=== PATIENT | female | born 1985 | race Caucasian/White ===

== ENCOUNTER 2019-03-09 09:04 | Inpatient (IN) | payer OTHER ==
[~2019-03-09] VITALS: Ht 175.3 cm; Wt 79.5 kg
[~2019-03-09 09:04] MED LIST: RINGERS SOLUTION,LACTATED 1,000 ML IV ONE
[2019-03-09] MEDS ORDERED: GELATIN SPONGE,ABSORBABLE 100 MM TP ONE ×2 (09:14→10:53)
[2019-03-09] MEDS ORDERED: THROMBIN, BOVINE 20000 UNITS/VIAL POWDER TP ONE ×2 (09:15→10:53)
[2019-03-09] MEDS ORDERED: CeFAZolin 2 GM/DEXTROSE 50 ML IV ONE (09:30)
[2019-03-09 09:52] LABS: BASOPHILS % (AUTO) 0.7 % (0.0-2.0); EOSINOPHILS % (AUTO) 2.4 % (1.0-6.0); HEMATOCRIT 42.7 % (36-46); HEMOGLOBIN 14.2 g/dL (12.0-16.0); LYMPHOCYTES # (AUTO) 1.8 K/uL (1.0-4.8); LYMPHOCYTES % (AUTO) 24.6 % (22.0-44.0); MEAN CORPUSCULAR HEMOGLOBIN 31.1 pg (26.0-34.0); MEAN CORPUSCULAR HGB CONC 33.3 G/dL (31.0-37.0); MEAN CORPUSCULAR VOLUME 93 fL (80-100); MONOCYTES # (AUTO) 0.4 K/uL (0.1-1.0); MONOCYTES % (AUTO) 5.7 % (2.0-9.0); NEUTROPHILS # (AUTO) 4.9 K/uL (1.8-7.7); NEUTROPHILS % (AUTO) 66.6 % (40.0-70.0); PLATELET COUNT (AUTO) 209 K/uL (150-450); RED BLOOD CELL COUNT(AUTO) 4.58 MIL/uL (4.00-5.20); RED CELL DISTRIBUTION WIDTH 12.3 % (11.5-14.5)
[2019-03-09 10:02] LABS: ANION GAP 7 mmol/L (8-16); CALCIUM, TOTAL 8.8 mg/dL (8.8-10.5); CARBON DIOXIDE 28 mmol/L (22-29); CHLORIDE 102 mmol/L (98-107); CREATININE 0.66 mg/dL (0.60-1.30); GLOMERULAR FILTR. RATE CALC > 60 mL/min (>60); GLUCOSE,RANDOM 87 mg/dL (70-110); POTASSIUM 4.2 mmol/L (3.5-5.1); SODIUM SERUM 137 mmol/L (136-145); UREA NITROGEN, BLOOD 11 mg/dL (7-18)
[2019-03-09 10:04] LABS: PROTHROMBIN TIME 9.7 SEC (9.4-11.6)
[2019-03-09 10:15] LABS: ALANINE AMINOTRANSFERASE 26 U/L (12-78); ALBUMIN 4.1 g/dL (3.4-5.0); ALKALINE PHOSPHATASE 61 U/L (46-116); ASPARTATE AMINOTRANSFERASE 17 U/L (15-37); BILIRUBIN,TOTAL 0.2 mg/dL (0.1-1.0); HCG,QUANTITATIVE < 1 mIU/mL (0-6); TOTAL PROTEIN, SERUM 7.8 g/dL (6.4-8.2)
[2019-03-09] MEDS ORDERED: ZOLPIDEM TARTRATE 10 MG TABLET PO PRN (10:30)
[2019-03-09] MEDS ORDERED: MAG HYDROX/AL HYDROX/SIMETH 30 ML SUSP UDCUP PO PRN (10:30)
[2019-03-09] MEDS ORDERED: DEXAMETHASONE SOD PHOS 4 MG/ML VIAL IVP PRN (10:30)
[2019-03-09] MEDS ORDERED: DiphenhydrAMINE HCL 50 MG/ML VIAL IVP PRN (10:30)
[2019-03-09] MEDS ORDERED: HYDROCODONE/ACETAMINOPHEN 5-325 MG TABLET PO PRN (12:15)
[2019-03-09] MEDS ORDERED: MEPERIDINE-PF 25 MG/ML VIAL IVP PRN (12:15)
[2019-03-09] MEDS ORDERED: HYDROmorphone 2 MG/ML SYRINGE IVP SCH (12:15)
[2019-03-09] MEDS ORDERED: HYDROCODONE/ACETAMINOPHEN 10-325 MG TABLET PO PRN (12:15)
[2019-03-09] MEDS ORDERED: FentaNYL CITRATE-PF 100 MCG/2 ML VIAL IVP PRN (12:15)
[2019-03-09] MEDS ORDERED: HYDROmorphone 2 MG/ML SYRINGE ONE ×2 (12:31→17:53)
[2019-03-09] MEDS: HYDROmorphone 2 MG/ML SYRINGE IVP PRN ×5 (12:34→21:42)
[2019-03-09] MEDS ORDERED: MEPERIDINE-PF 25 MG/ML VIAL ONE (12:52)
[2019-03-09] MEDS ORDERED: FentaNYL CITRATE-PF 100 MCG/2 ML VIAL ONE (13:17)
[2019-03-09] MEDS ORDERED: CYCLOBENZAPRINE HCL 10 MG TABLET PO SCH (14:00)
[2019-03-09] MEDS ORDERED: ClonazePAM 0.5 MG TABLET PO SCH (14:45)
[2019-03-09] MEDS ORDERED: HYDROmorphone 2 MG/ML SYRINGE IVP PRN (15:15)
[2019-03-09 16:20] VITALS: BP 120/74
[2019-03-09] MEDS ORDERED: DIAZEPAM 5 MG TABLET ONE (17:50)
[2019-03-09] MEDS ORDERED: DIAZEPAM 5 MG TABLET PO SCH ×2 (18:00→21:00)
[2019-03-09] MEDS ORDERED: OxyCODONE HCL 10 MG IR TABLET PO PRN (18:00)
[2019-03-09] MEDS ORDERED: SODIUM CHLORIDE 0.9% 500 ML IV ONE (19:55)
[2019-03-09] MEDS: ACETAMINOPHEN 1000 MG/ISO-OSM 100 ML IV SCH (20:02)
[2019-03-09] MEDS: DOCUSATE SODIUM 100 MG CAPSULE PO SCH (20:02)
[2019-03-09] MEDS ORDERED: CYCLOBENZAPRINE HCL 10 MG TABLET PO ONE (20:30)
[2019-03-09 20:34] VITALS: BP 127/72
[2019-03-09] MEDS: ZOLPIDEM TARTRATE 5 MG TABLET PO SCH (21:00)
[2019-03-09] MEDS: OXYGEN THERAPY IH SCH (21:03)
[2019-03-09] MEDS ORDERED: TEMAZEPAM 7.5 MG CAPSULE PO ONE (21:45)
[2019-03-10 00:27] VITALS: BP 122/66
[2019-03-10] MEDS: HYDROmorphone 2 MG/ML SYRINGE IVP PRN ×4 (00:29→22:05)
[2019-03-10] MEDS: ACETAMINOPHEN 1000 MG/ISO-OSM 100 ML IV SCH ×2 (03:07→09:02)
[2019-03-10 03:17] VITALS: BP 120/68
[2019-03-10] MEDS ORDERED: KETAMINE HCL 50 MG/ML 10 ML VIAL IVP ONE (04:46)
[2019-03-10] MEDS ORDERED: FentaNYL CITRATE-PF 100 MCG/2 ML VIAL IVP ONE (04:46)
[2019-03-10] MEDS ORDERED: PROPOFOL 1% 20 ML VIAL IVP ONE (04:46)
[2019-03-10] MEDS ORDERED: LIDOCAINE/PF 2% 5 ML VIAL IM ONE (04:46)
[2019-03-10] MEDS ORDERED: MIDAZOLAM HCL 2 MG/2 ML VIAL IVP ONE (04:46)
[2019-03-10] MEDS ORDERED: DEXAMETHASONE SOD PHOS 4 MG/ML VIAL IVP ONE (04:46)
[2019-03-10] MEDS ORDERED: PHENYLEPHRINE HCL 10 MG/ML VIAL IVP ONE (04:46)
[2019-03-10] MEDS ORDERED: NEOSTIGMINE METHYLSULFATE 1 MG/ML 10 ML VIAL IVP ONE (04:46)
[2019-03-10] MEDS ORDERED: GLYCOPYRROLATE 0.2 MG/ML VIAL IM ONE (04:46)
[2019-03-10] MEDS ORDERED: ONDANSETRON HCL 4 MG/2 ML VIAL IVP ONE (04:46)
[2019-03-10] MEDS ORDERED: SUCCINYLCHOLINE CHLORIDE 20 MG/ML 10 ML VIAL IVP ONE (04:46)
[2019-03-10 05:25] VITALS: BP 118/59
[2019-03-10 07:50] VITALS: BP 114/63
[2019-03-10] MEDS: OXYGEN THERAPY IH SCH ×2 (08:00→20:26)
[2019-03-10] MEDS: ClonazePAM 0.5 MG TABLET PO SCH ×2 (08:59→20:25)
[2019-03-10] MEDS: BENZOCAINE/MENTHOL LOZENGE PO PRN ×4 (08:59→22:20)
[2019-03-10] MEDS: CYCLOBENZAPRINE HCL 10 MG TABLET PO SCH ×4 (08:59→23:48)
[2019-03-10] MEDS: DOCUSATE SODIUM 100 MG CAPSULE PO SCH ×2 (08:59→20:25)
[2019-03-10 16:54] VITALS: BP 119/71
[2019-03-10] MEDS: DiphenhydrAMINE HCL 25 MG CAPSULE PO PRN ×2 (17:59→18:00)
[2019-03-10 19:52] VITALS: BP 120/76
[2019-03-10] MEDS: ZOLPIDEM TARTRATE 5 MG TABLET PO SCH (20:26)
[2019-03-11] VITALS: BP 119/76
[2019-03-11] MEDS: HYDROmorphone 2 MG/ML SYRINGE IVP PRN ×3 (03:18→13:22)
[2019-03-11] MEDS: DiphenhydrAMINE HCL 25 MG CAPSULE PO PRN (03:40)
[2019-03-11 04:00] VITALS: BP 103/58
[2019-03-11] MEDS: OXYGEN THERAPY IH SCH (08:00)
[2019-03-11] MEDS: DOCUSATE SODIUM 100 MG CAPSULE PO SCH (09:23)
[2019-03-11] MEDS: CYCLOBENZAPRINE HCL 10 MG TABLET PO SCH (09:59)
[2019-03-11] MEDS: ClonazePAM 0.5 MG TABLET PO SCH (09:59)
[2019-03-11] MEDS: BENZOCAINE/MENTHOL LOZENGE PO PRN (10:04)
[2019-03-11] MEDS ORDERED: MAGNESIUM HYDROXIDE SUSPENSION 30 ML UDCUP PO ONE (11:45)
[2019-03-11 12:49] VITALS: BP 108/60
== END 2019-03-11 15:20 | disposition home or self-care (01) | DRG 473 ==
LOC: 6N 09:04 → 4E 11:11
PROVIDERS: ADMIT Orthopaedic Surgery Orthopaedic Surgery of the Spine; ATTEND Orthopaedic Surgery Orthopaedic Surgery of the Spine
PROC: 0RB30ZZ Excision of Cervical Vertebral Disc, Open Approach (ICD-10-PCS; 2019-03-09)
PROC: 01N10ZZ Release Cervical Nerve, Open Approach (ICD-10-PCS; 2019-03-09)
PROC: 4A11X4G Monitoring of Peripheral Nervous Electrical Activity, Intraoperative, External Approach (ICD-10-PCS; 2019-03-09)
PROC: 0RG2070 Fusion of 2 or more Cervical Vertebral Joints with Autologous Tissue Substitute, Anterior Approach, Anterior Column, Open Approach (ICD-10-PCS; principal; 2019-03-09 11:15)
DX: M48.02 Spinal stenosis, cervical region (principal); M25.78 Osteophyte, vertebrae; Z79.899 Other long term (current) drug therapy
CPT/HCPCS: 87081; 97116; 97162; 97166; 97530; 97535; G0238; G0378; J0131; J0330; J0690; J1100; J1170; J1200; J2175; J2250; J2370; J2405; J2704; J3010; J3490; J7040; J7120